=== PATIENT | male | born 1945 ===

== ENCOUNTER 2020-03-18 18:46 | Inpatient (IN) | payer OTHER ==
[~2020-03-18] VITALS: Ht 177.8 cm; Wt 72.6 kg
== END 2020-03-27 07:32 | disposition expired | DRG 812 ==
LOC: ER → MEDJ 03-19 06:23
PROVIDERS: ADMIT Internal Medicine Cardiovascular Disease; ATTEND Internal Medicine Cardiovascular Disease
PROC: 30233N1 Transfusion of Nonautologous Red Blood Cells into Peripheral Vein, Percutaneous Approach (ICD-10-PCS; principal; 2020-03-19)
PROC: BW21ZZZ Computerized Tomography (CT Scan) of Abdomen and Pelvis (ICD-10-PCS; 2020-03-19)
PROC: BW40ZZZ Ultrasonography of Abdomen (ICD-10-PCS; 2020-03-19)
PROC: BW28ZZZ Computerized Tomography (CT Scan) of Head (ICD-10-PCS; 2020-03-25)
DX: D64.89 Other specified anemias (principal); N13.8 Other obstructive and reflux uropathy; N40.1 Benign prostatic hyperplasia with lower urinary tract symptoms; F10.20 Alcohol dependence, uncomplicated; K70.30 Alcoholic cirrhosis of liver without ascites; R97.20 Elevated prostate specific antigen [PSA]; G93.89 Other specified disorders of brain